=== PATIENT | male | born 1945 | race American Indian/Alaskan Native ===

== ENCOUNTER 2021-10-27 05:53 | Observation (INO) | payer MEDICARE ==
[2021-10-22 11:40] LABS: Hematocrit 36.9 % (35.5-45.6); Hemoglobin 12.2 gm/dl (11.8-15.2); Mean Corpuscular HGB Conc 33 % (32-34); Mean Corpuscular Volume 91 fl (84-94); Platelet Count 293 K/mm3 (140-440); Red Blood Count 4.07 M/mm3 (3.65-5.03); Red Cell Distribution Width 15.5 % (13.2-15.2)
[2021-10-22 12:11] LABS: Alanine Aminotransferase 27 units/L (7-56); Albumin 4.5 g/dL (3.9-5); BUN/Creatinine Ratio 14; Blood Urea Nitrogen 13 mg/dL (9-20); Calcium 9.3 mg/dL (8.4-10.2); Hemolysis Index 3
--- NOTE | 2021-10-22 15:32 | Anesthesia Consultation ---
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 Pt states ok to take NSAIDs) - Endocrine Hx Non-Insulin Dependent Diabetes: Yes - Hematic Hx Anemia: Yes Hx Sickle Cell Disease: No - Other Systems Hx Cancer: No
[~2021-10-27 05:53] MED LIST: MIDAZOLAM 2 MG/2 ML INJ IV NR
[2021-10-27] MEDS ORDERED: MAGNESIUM OXIDE 400 MG TAB PO ONE (06:00)
[2021-10-27] MEDS ORDERED: ACETAMINOPHEN 325 MG TAB PO ONE (06:00)
[2021-10-27] MEDS ORDERED: CELECOXIB 200 MG CAP PO NR (06:00)
[2021-10-27] MEDS ORDERED: GABAPENTIN 300 MG CAP PO NR (06:00)
[2021-10-27] MEDS ORDERED: LACTATED RINGERS 1,000 ML IV SCH (06:00)
[2021-10-27] MEDS ORDERED: BUPIVACAINE/PF (0.5%) 5 MG/1 ML 30 ML VIAL INFILTRATI ONE ×2 (07:13→09:04)
[2021-10-27] MEDS ORDERED: SODIUM CHLORIDE 0.9% 500 ML 500 ML ONE (07:13)
[2021-10-27] MEDS ORDERED: GENTAMICIN/NS 80 MG/100 ML 100 ML IV ONE ×3 (07:13→08:18)
[2021-10-27] MEDS ORDERED: rifAMPin 600 MG VIAL ONE (07:13)
[2021-10-27] MEDS ORDERED: NEOMY 40 MG/POLYMYXIN B 200,000 UNITS/ML (GU) AMPULE IR ONE ×2 (07:14→09:04)
[2021-10-27] MEDS ORDERED: LIDOCAINE MPF (2%) 20 MG/1 ML VIAL 5 ML ONE (07:45)
[2021-10-27] MEDS ORDERED: ONDANSETRON 4 MG/2 ML INJ ONE (07:45)
[2021-10-27] MEDS ORDERED: propofoL 200 MG/20 ML VIAL IV ONE (07:46)
[2021-10-27] MEDS ORDERED: fentaNYL 100 MCG/2 ML INJ ONE (07:46)
[2021-10-27] MEDS ORDERED: VANCOMYCIN/NS 1 GM/250 ML 1 GM/250 ML BAG IV NR (08:00)
[2021-10-27] MEDS ORDERED: ePHEDrine SULFATE 50 MG/1 ML INJ ONE (08:39)
[2021-10-27] MEDS ORDERED: SODIUM CHLORIDE 0.9% IRR 1,500 ML BOTTLE IR ONE (09:04)
[2021-10-27] MEDS ORDERED: GENTAMICIN 40 MG/ML VIAL 2 ML IV ONE (09:04)
[2021-10-27] MEDS ORDERED: SODIUM CHLORIDE 0.9% 500 ML IVPB IRRIGATION ONE (09:04)
[2021-10-27] MEDS ORDERED: rifAMPin 600 MG VIAL IV ONE (09:04)
[2021-10-27] MEDS ORDERED: PHENYLEPHRINE/NS 1,000 MCG/10 ML SYRINGE (OR USE) IV ONE (09:32)
[2021-10-27] MEDS ORDERED: NALOXONE 0.4 MG/1 ML INJ IV PRN (10:12)
[2021-10-27] MEDS ORDERED: MORPHINE 4 MG/1 ML INJ IV PRN (10:12)
[2021-10-27] MEDS ORDERED: ACETAMINOPHEN 325 MG TAB PO PRN (10:12)
[2021-10-27] MEDS ORDERED: DEXTROSE 50% IN WATER (25GM) 50 ML SYRINGE IV PRN (10:12)
[2021-10-27] MEDS ORDERED: ONDANSETRON 4 MG/2 ML INJ IV PRN (10:12)
--- NOTE | 2021-10-27 10:34 | Operative Report ---
DATE OF SURGERY: 10/27/2021 PREOPERATIVE DIAGNOSIS: Erectile dysfunction. POSTOPERATIVE DIAGNOSES: Erectile dysfunction, redundant scrotal skin. PROCEDURE: Insertion of inflatable penile prosthesis (Titan 20 cm +1.5 cm rear tip cullet washer). Intracorporal pharmacologic injection as well as scrotoplasty. SURGEON: Markus Auguste MD ANESTHESIA: General. ESTIMATED BLOOD LOSS: Minimal. FLUIDS: Crystalloid. COMPLICATIONS: No complications. INDICATIONS: This patient is a 76-year-old gentleman with history of hypertension and diabetes with refractory erectile dysfunction. We discussed options. He was actually seen 2 Urologists in our group. He agreed to proceed with surgical intervention. He has a large scar in his abdomen. He is aware he may require two incisions. DESCRIPTION OF PROCEDURE: The patient was taken to the operative suite, placed in a supine position. After adequate general anesthesia, he was prepped and draped in a sterile fashion. Verma catheter was placed on the operative field. A dorsal block with 10 mL Marcaine as well as 40 mL of Marcaine was injected into the corporal body for pain management as well as no curvature could be appreciated. Transscrotal incision was made with a Bovie. Sharp dissection was taken down to the corporal bodies. Verma catheter was placed on the operative field. A 2-0 Vicryl stay sutures were placed in the corporal bodies. Corporotomies were made bilaterally. Measurements were performed. Total of 21.5 cm. Therefore, a 20 cm Titan device with 1.5 cm rear tip cullet washer was prepped. A 125 mL reservoir was prepped and placed in the retropubic space via the right external ring. I was able to get it in proper position without any scar tissue from the previous incision, although is a thin the patient and he has some mild bulging, which he was told preoperatively may occur. It was inflated to 80 mL. The cylinders were prepped, placed in the corporal bodies with the aide of the Valeriano needle. Corporotomies were closed with 2-0 Vicryl in a running fashion. The reservoir and pump was connected with the besomebody. connection system. Insufflation revealed an excellent cosmetic appearance. Copious irrigation was performed. Adequate hemostasis was achieved. Redundant scrotal skin was trimmed. The pump was placed in the dependent portion of the scrotum. A pursestring suture, 2-0 Vicryl was used to close the dartos layer. Skin was closed with 3-0 Vicryl in interrupted fashion. Collodion and Xeroform gauze was placed followed by a mummy wrap. The patient was inflated approximately 70% full erection and taped to the abdomen. Verma catheter was left indwelling. He was extubated and taken to recovery room. He will be observed overnight and go home on Bactrim and [place]. TID: [id number] RECEIPT: [id number] YONG/KINZA
[2021-10-27] MEDS ORDERED: SODIUM CHLORIDE 0.45% 1000 ML 1,000 ML IV SCH (12:00)
[2021-10-27] MEDS: METOPROLOL TARTRATE 25 MG TAB PO SCH (13:09)
[2021-10-27] MEDS: GABAPENTIN 100 MG CAP PO SCH (13:09)
[2021-10-27] MEDS: LISINOPRIL 10 MG TAB PO SCH (13:09)
[2021-10-27] MEDS: TAMSULOSIN 0.4 MG CAP PO SCH (13:10)
--- NOTE | 2021-10-27 14:20 | Anesthesia Day of Surgery ---
Anesthesia Day of Surgery - Day of Surgery Patient Examined: Yes Patient H&P Reviewed: Yes Patient is NPO: Yes
--- NOTE | 2021-10-27 14:21 | Post Anesthesia Evaluation ---
- Post Anesthesia Evaluation Patient Participated: Yes Airway Patent: Yes Stable Respiratory Function: Yes Nausea/Vomiting: No Temp > 96.8F: Yes Pain Manageable: Yes Adequeate Hydration: Yes Anesthesia Complications: No
[2021-10-27] MEDS: GLIMEPIRIDE 4 MG TAB PO SCH (17:01)
[2021-10-27] MEDS ORDERED: VANCOMYCIN/NS 1 GM/250 ML 1 GM/250 ML BAG IV SCH (20:00)
--- NOTE | 2021-10-27 20:38 | Consultation ---
History of Present Illness - Reason for Consult Consult date: 10/27/21 Diabetes Requesting physician: LORRAINE AUGUSTE - History of Present Illness 76 YO Male with DM, HTN admitted for urologic surgery. Consult placed by Dr. Auguste for medical management. Patient seen and evaluated upon arrival to his room. Patient resting comfortably. Patient denies pain. No reported nursing events. Past History Past Medical History: diabetes, hypertension, other (See HPI) Past Surgical History: Other (Urologic surgery) Social history: single. denies: smoking, alcohol abuse, prescription drug abuse Family history: diabetes, hypertension Medications and Allergies Allergies Allergy/AdvReac Type Severity Reaction Status Date / Time ampicillin Allergy Hives Verified 10/17/21 11:21 Home Medications Medication Instructions Recorded Confirmed Last Taken Type Empagliflozin [Jardiance] 25 mg PO QHS 10/22/21 10/27/21 10/26/21 20:00 History Gabapentin [Neurontin] 100 mg PO BID 10/22/21 10/27/21 10/26/21 17:00 History Gabapentin [Neurontin] 300 mg PO QHS 10/22/21 10/27/21 10/26/21 20:00 History Glimepiride [Amaryl] 4 mg PO BID 10/22/21 10/27/21 10/26/21 17:00 History Metoprolol [Lopressor] 25 mg PO DAILY 10/22/21 10/27/21 10/26/21 09:00 History Tamsulosin [Flomax] 0.4 mg PO DAILY 10/22/21 10/27/21 10/26/21 09:00 History lisinopriL [Lisinopril] 10 mg PO DAILY 10/22/21 10/27/21 10/26/21 09:00 History Active Meds: Active Medications Acetaminophen (Acetaminophen 325 Mg Tab) 650 mg PO Q4H PRN PRN Reason: Pain MILD(1-3)/Fever >100.5/[place] Hydrocodone Bitart/Acetaminophen (Hydrocodone/Acetaminophen 5-325 Mg Tab) 2 each PO Q6H PRN PRN Reason: Pain, Moderate (4-6) Celecoxib (Celecoxib 200 Mg Cap) 200 mg PO PREOP NR Stop: 10/27/21 23:59 Last Admin: 10/27/21 06:50 Dose: 200 mg Dextrose (Dextrose 50% In Water (25gm) 50 Ml Syringe) 50 ml IV Q30MIN PRN; Protocol PRN Reason: Hypoglycemia Gabapentin (Gabapentin 300 Mg Cap) 300 mg PO PREOP NR Stop: 10/27/21 23:59 Last Admin: 10/27/21 09:50 Dose: 300 mg Gabapentin (Gabapentin 100 Mg Cap) 100 mg PO BID@0800,1400 [facility] Last Admin: 10/27/21 13:09 Dose: 100 mg Gabapentin (Gabapentin 300 Mg Cap) 300 mg PO QHS [facility] Glimepiride (Glimepiride 4 Mg Tab) 4 mg PO BIDDIAB [facility] Last Admin: 10/27/21 17:01 Dose: 4 mg Lactated Ringer's (Lactated Ringers) 1,000 mls @ 125 mls/hr IV DIRECT JULIA Stop: 10/27/21 23:59 Last Admin: 10/27/21 07:00 Dose: 125 mls/hr Sodium Chloride (Nacl 0.45% 1000 Ml) 1,000 mls @ 100 mls/hr IV DIRECT [facility] Vancomycin HCl (Vancomycin/Ns 1 Gm/250 Ml) 1 gm in 250 mls @ 167.007 mls/hr IV Q12H [facility] Stop: 10/27/21 21:30 Lisinopril (Lisinopril 10 Mg Tab) 10 mg PO DAILY [facility] Last Admin: 10/27/21 13:09 Dose: 10 mg Metoprolol Tartrate (Metoprolol Tartrate 25 Mg Tab) 25 mg PO DAILY [facility] Last Admin: 10/27/21 13:09 Dose: 25 mg Midazolam HCl (Midazolam 2 Mg/2 Ml Inj) 2 mg IV PREOP NR Stop: 10/27/21 23:59 Last Admin: 10/27/21 07:50 Dose: 2 mg Miscellaneous Medication (Empagliflozin [Jardiance]) 25 mg PO QHS [facility] Morphine Sulfate (Morphine 4 Mg/1 Ml Inj) 4 mg IV Q4H PRN PRN Reason: Pain , Severe (7-10) Naloxone HCl (Naloxone 0.4 Mg/1 Ml Inj) 0.1 mg IV Q2MIN PRN PRN Reason: Res Rate </= 8 or 02 SAT < 92% Ondansetron HCl (Ondansetron 4 Mg/2 Ml Inj) 4 mg IV Q8H PRN PRN Reason: N/V unrelieved by Sara Tamsulosin HCl (Tamsulosin 0.4 Mg Cap) 0.4 mg PO DAILY [facility] Last Admin: 10/27/21 13:10 Dose: 0.4 mg Review of Systems Constitutional: no weight loss, no fever, no sweats, no night sweats Ears, nose, mouth and throat: no ear pain, no tinnitis, no nose pain, no nasal congestion Cardiovascular: no chest pain, no palpitations, no edema, no lightheadedness Respiratory: no cough, no cough with sputum, no excessive sputum, no shortness of breath Gastrointestinal: no abdominal pain, no vomiting, no diarrhea Genitourinary Male: no hematuria, no flank pain, no discharge, no urinary frequency Rectal: no pain, no incontinence, no bleeding Musculoskeletal: no neck pain, no shooting arm pain, no arm numbness/tingling, no shooting leg pain, no leg numbness/tingling Integumentary: no rash, no pruritis, no sores, no jaundice Neurological: no transient paralysis, no parathesias, no numbness, no seizures, no tremors Psychiatric: no anxiety, no sleep disturbances, no insomnia, no disorientation Endocrine: no excessive thirst, no nocturia, no excessive sweating Allergic/Immunologic: no allergic rhinitis, no wheezing Exam - Constitutional Vitals: Temp Pulse Resp BP Pulse Ox 98.4 F 65 13 145/79 100 10/27/21 11:30 10/27/21 11:30 10/27/21 11:30 10/27/21 13:09 10/27/21 12:08 General appearance: Present: mild distress - EENT Eyes: Present: PERRL ENT: hearing intact, clear oral mucosa - Neck Neck: Present: supple, normal ROM - Respiratory Respiratory effort: normal Respiratory: bilateral: CTA - Cardiovascular Heart Sounds: Present: S1 & S2. Absent: rub, click - Extremities Extremities: pulses symmetrical, No edema Peripheral Pulses: within normal limits - Abdominal General gastrointestinal: Present: soft, non-tender, non-distended, normal bowel sounds Male genitourinary: Present: normal - Integumentary Integumentary: Present: clear, warm, dry - Musculoskeletal Musculoskeletal: gait normal, strength equal bilaterally - Psychiatric Psychiatric: appropriate mood/affect, intact judgment & insight - Neurologic Neurologic: CNII-XII intact, moves all extremities Results - Labs CBC & Chem 7: 10/22/21 10:20 10/22/21 10:20 Labs: Abnormal lab results 10/27/21 Range/Units 17:11 POC Glucose 149 H (70-105) mg/dL Assessment and Plan - Patient Problems (1) Hypertension Current Visit: Yes Status: Acute Qualifiers: Hypertension type: primary hypertension Qualified Code(s): I10 - Essential (primary) hypertension Plan to address problem: Blood pressure currently controlled. Continue current antihypertensive therapy, monitor blood pressure nightly. Continue medical management. (2) Diabetes Current Visit: Yes Status: Acute Plan to address problem: Consistent carbohydrate diet, continue medical management, supportive care.
[2021-10-27] MEDS: GABAPENTIN 300 MG CAP PO SCH ×2 (20:39→21:13)
[2021-10-27] MEDS ORDERED: NON-FORMULARY EACH (Empagliflozin [Jardiance] 25 MG Tablet) PO SCH (22:00)
[2021-10-27] MEDS: HYDROcodone/ACETAMINOPHEN 5-325 MG TAB PO PRN (22:36)
--- NOTE | 2021-10-28 08:41 | Short Stay Summary ---
Short Stay Documentation Date of service: 10/27/21 - History H&P: obtained from office Past Medical History: diabetes, hypertension, other (See HPI) Past Surgical History: Other (Urologic surgery) Social history: single, no smoking, no alcohol abuse, no prescription drug abuse - Allergies and Medications Current Medications: Allergies ampicillin Allergy (Verified 10/17/21 11:21) Hives Home Medications Medication Instructions Recorded Confirmed Last Taken Type Empagliflozin [Jardiance] 25 mg PO QHS 10/22/21 10/27/21 10/26/21 20:00 History Gabapentin [Neurontin] 100 mg PO BID 10/22/21 10/27/21 10/26/21 17:00 History Gabapentin [Neurontin] 300 mg PO QHS 10/22/21 10/27/21 10/26/21 20:00 History Glimepiride [Amaryl] 4 mg PO BID 10/22/21 10/27/21 10/26/21 17:00 History Metoprolol [Lopressor] 25 mg PO DAILY 10/22/21 10/27/21 10/26/21 09:00 History Tamsulosin [Flomax] 0.4 mg PO DAILY 10/22/21 10/27/21 10/26/21 09:00 History lisinopriL [Lisinopril] 10 mg PO DAILY 10/22/21 10/27/21 10/26/21 09:00 History Active Medications Acetaminophen (Acetaminophen 325 Mg Tab) 650 mg PO Q4H PRN PRN Reason: Pain MILD(1-3)/Fever >100.5/[place] Hydrocodone Bitart/Acetaminophen (Hydrocodone/Acetaminophen 5-325 Mg Tab) 2 each PO Q6H PRN PRN Reason: Pain, Moderate (4-6) Last Admin: 10/27/21 22:36 Dose: 2 each Dextrose (Dextrose 50% In Water (25gm) 50 Ml Syringe) 50 ml IV Q30MIN PRN; Protocol PRN Reason: Hypoglycemia Gabapentin (Gabapentin 100 Mg Cap) 100 mg PO BID@0800,1400 [facility] Last Admin: 10/27/21 13:09 Dose: 100 mg Gabapentin (Gabapentin 300 Mg Cap) 300 mg PO QHS [facility] Last Admin: 10/27/21 21:13 Dose: Not Given Glimepiride (Glimepiride 4 Mg Tab) 4 mg PO BIDDIAB [facility] Last Admin: 10/27/21 17:01 Dose: 4 mg Sodium Chloride (Nacl 0.45% 1000 Ml) 1,000 mls @ 100 mls/hr IV DIRECT [facility] Last Admin: 10/27/21 20:43 Dose: 100 mls/hr Lisinopril (Lisinopril 10 Mg Tab) 10 mg PO DAILY [facility] Last Admin: 10/27/21 13:09 Dose: 10 mg Metoprolol Tartrate (Metoprolol Tartrate 25 Mg Tab) 25 mg PO DAILY [facility] Last Admin: 10/27/21 13:09 Dose: 25 mg Miscellaneous Medication (Empagliflozin [Jardiance]) 25 mg PO QHS [facility] Morphine Sulfate (Morphine 4 Mg/1 Ml Inj) 4 mg IV Q4H PRN PRN Reason: Pain , Severe (7-10) Naloxone HCl (Naloxone 0.4 Mg/1 Ml Inj) 0.1 mg IV Q2MIN PRN PRN Reason: Res Rate </= 8 or 02 SAT < 92% Ondansetron HCl (Ondansetron 4 Mg/2 Ml Inj) 4 mg IV Q8H PRN PRN Reason: N/V unrelieved by Reglan Tamsulosin HCl (Tamsulosin 0.4 Mg Cap) 0.4 mg PO DAILY [facility] Last Admin: 10/27/21 13:10 Dose: 0.4 mg - Physical exam Extremities: pulses symmetrical, No edema - Brief post op/procedure progress note Date of procedure: 10/28/21 Pre-op diagnosis: ed Post-op diagnosis: same Procedure: ipp Anesthesia: GETA Surgeon: LORRAINE ROSE Estimated blood loss: 50-100ml Pathology: list (skin) Specimen disposition: to lab Condition: stable - Hospital course Hospital course: abx, pain meds, post op info on chart - Disposition Condition at discharge: Stable Disposition: 01 HOME / SELF CARE / HOMELESS Short Stay Discharge Plan Follow up with: MALIK GUTIERREZ [Other] - 7 Days
[2021-10-28] MEDS: GABAPENTIN 100 MG CAP PO SCH (08:43)
[2021-10-28] MEDS: METOPROLOL TARTRATE 25 MG TAB PO SCH (09:29)
[2021-10-28] MEDS: TAMSULOSIN 0.4 MG CAP PO SCH (09:29)
[2021-10-28 09:30] VITALS: BP 134/75
[2021-10-28] MEDS: LISINOPRIL 10 MG TAB PO SCH (09:30)
[2021-10-28] MEDS: GLIMEPIRIDE 4 MG TAB PO SCH (10:26)
[2021-10-28] MEDS: HYDROcodone/ACETAMINOPHEN 5-325 MG TAB PO PRN (11:43)
--- NOTE | 2021-10-28 14:07 | Progress Note ---
Assessment and Plan (1) Hypertension Current Visit: Yes Status: Acute Qualifiers: Hypertension type: primary hypertension Qualified Code(s): I10 - Essential (primary) hypertension Plan to address problem: Blood pressure currently controlled. Continue current antihypertensive therapy, monitor blood pressure nightly. Continue medical management. (2) Diabetes Current Visit: Yes Status: Acute Plan to address problem: Consistent carbohydrate diet, continue medical management, supportive care. Subjective Date of service: 10/28/21 Objective - Constitutional Vitals: Vital Signs - 12hr 10/28/21 10/28/21 10/28/21 04:52 09:29 09:30 Temperature 98.7 F Pulse Rate 51 L 89 Respiratory 20 Rate Blood Pressure 94/55 134/75 O2 Sat by Pulse 98 Oximetry 10/28/21 09:48 Temperature Pulse Rate Respiratory Rate Blood Pressure O2 Sat by Pulse 98 Oximetry - Labs CBC & Chem 7: 10/22/21 10:20 10/22/21 10:20 Labs: Abnormal lab results 10/27/21 Range/Units 17:11 POC Glucose 149 H (70-105) mg/dL
== END 2021-10-28 13:20 | disposition home or self-care (01) ==
LOC: OR 05:53 → EDSTATUS 08:00 → 3A 10:12
PROVIDERS: ADMIT Urology; ATTEND Urology
DX: N52.01 Erectile dysfunction due to arterial insufficiency (principal); Z20.822 Contact with and (suspected) exposure to COVID-19; I10 Essential (primary) hypertension; E11.9 Type 2 diabetes mellitus without complications; Z79.899 Other long term (current) drug therapy; Z98.890 Other specified postprocedural states
CPT/HCPCS: 36415; 54405; 80053; 82962; 85027; 88302; 96365; 96366; C1813; G0378; G0379; J1580; J2250; J2370; J2704; J3010; J3370; J3490; J7030; J7040; J7120; U0003; 88305; J2405